=== PATIENT | female | born 1990 | race Native Hawaiian/Other Pacific Islander ===

== ENCOUNTER 2016-11-12 18:20 | Emergency (ER) | payer OTHER ==
[~2016-11-12] VITALS: Ht 154.9 cm; Wt 99.3 kg
[~2016-11-12 18:20] MED LIST: ACET-689 PO; CIPRO250 MG PO; DICY20TA34 PO; LORA10TA3 PO; LORTAB1 TAB PO; ONDA4TAB3 PO; PROM25TA52 PO; PROZAC10 MG PO; TOBRAMYCIN0.3 % OP; ZANTAC 75 PO
[2016-11-12 19:08] VITALS: BP 127/83; TEMP 98.5
== END 2016-11-12 19:12 | disposition home or self-care (01) ==
LOC: ED 18:20
DX: K64.4 Residual hemorrhoidal skin tags (principal); K64.8 Other hemorrhoids
CPT/HCPCS: 99282

== ENCOUNTER 2017-06-12 08:30 | Emergency (ER) | payer OTHER ==
[~2017-06-12] VITALS: Ht 154.9 cm; Wt 93.9 kg
[2017-06-12 08:35] VITALS: TEMP 98.1
[2017-06-12 10:17] LABS: PLATELET COUNT 277 K/uL (152-353)
[2017-06-12 10:19] LABS: POTASSIUM 3.9 mmol/L (3.6-5.2)
[2017-06-12 13:16] VITALS: BP 138/90
== END 2017-06-12 13:16 | disposition home or self-care (01) ==
LOC: ED 08:30
PROVIDERS: Family Medicine
DX: R07.89 Other chest pain (principal); R10.11 Right upper quadrant pain
CPT/HCPCS: 36415; 80048; 84484; 85027; 85379; 96374; 99284; J1885

== ENCOUNTER 2017-06-28 18:20 | Emergency (ER) | payer OTHER ==
[~2017-06-28] VITALS: Ht 154.9 cm; Wt 93.9 kg
[2017-06-28 18:52] VITALS: BP 111/87; TEMP 97.7
[2017-06-28] MEDS ORDERED: ALBU90AE13 INH (18:53)
== END 2017-06-28 19:20 | disposition home or self-care (01) ==
LOC: ED 18:20
DX: K64.4 Residual hemorrhoidal skin tags (principal)
CPT/HCPCS: 99281

== ENCOUNTER 2017-07-10 11:05 | Outpatient (CLI) | payer OTHER ==
[~2017-07-10 11:05] MED LIST changes: +ALBU90AE13 INH
== END 2017-07-10 19:48 | disposition home or self-care (01) ==
LOC: NM 11:05
DX: K81.9 Cholecystitis, unspecified (principal); R10.84 Generalized abdominal pain
CPT/HCPCS: A9537

== ENCOUNTER 2017-07-13 12:15 | Emergency (ER) | payer OTHER ==
[~2017-07-13] VITALS: Ht 154.9 cm; Wt 93.0 kg
[2017-07-13 13:42] LABS: PLATELET COUNT 324 K/uL (152-353)
[2017-07-13 13:48] LABS: POTASSIUM 3.4 mmol/L (3.6-5.2)
[2017-07-13 16:00] VITALS: BP 139/84; TEMP 98
== END 2017-07-13 17:44 | disposition home or self-care (01) ==
LOC: ED 12:15
DX: F31.89 Other bipolar disorder (principal); R11.2 Nausea with vomiting, unspecified
CPT/HCPCS: 36415; 80053; 80307; 80320; 80329; 81000; 84439; 84443; 85027; 87086; 87088; 99284

== ENCOUNTER 2018-02-01 13:37 | Emergency (ER) | payer OTHER ==
[~2018-02-01] VITALS: Ht 154.9 cm; Wt 93.0 kg
[2018-02-01 15:07] VITALS: BP 118/90; TEMP 97.7
== END 2018-02-01 15:12 | disposition home or self-care (01) ==
LOC: ED 13:37
DX: B34.9 Viral infection, unspecified (principal); W54.0XXA Bitten by dog, initial encounter
CPT/HCPCS: 99282

== ENCOUNTER 2018-05-24 09:54 | Outpatient (CLI) | payer OTHER | END 2018-05-24 19:48 | disposition home or self-care (01) | LOC: LABW 09:54 | DX: K52.9 Noninfective gastroenteritis and colitis, unspecified (principal) | CPT/HCPCS: 83630; 87015; 87045; 87324; 87328; 87329; 87449; 87899 ==

== ENCOUNTER 2018-07-10 10:33 | Emergency (ER) | payer OTHER ==
[~2018-07-10] VITALS: Ht 154.9 cm; Wt 105.2 kg
[2018-07-10 10:35] VITALS: TEMP 98
[2018-07-10 11:41] LABS: PLATELET COUNT 316 K/uL (152-353)
[2018-07-10 11:49] LABS: POTASSIUM 4.3 mmol/L (3.6-5.2)
[2018-07-10 15:42] VITALS: BP 118/74
== END 2018-07-10 15:42 | disposition home or self-care (01) ==
LOC: ED 10:33
PROVIDERS: Emergency Medicine
DX: R10.84 Generalized abdominal pain (principal); D72.828 Other elevated white blood cell count
CPT/HCPCS: 80053; 81000; 81025; 82150; 83690; 85027; 96374; 99284; J1885

== ENCOUNTER 2018-08-20 21:36 | Emergency (ER) | payer OTHER ==
[~2018-08-20] VITALS: Ht 154.9 cm; Wt 104.3 kg
[2018-08-20 23:51] VITALS: BP 116/78; TEMP 98
== END 2018-08-20 23:51 | disposition home or self-care (01) ==
LOC: ED 21:36
DX: J02.0 Streptococcal pharyngitis (principal)
CPT/HCPCS: 87502; 87651; 99283

== ENCOUNTER 2018-08-23 15:14 | Emergency (ER) | payer OTHER ==
[~2018-08-23] VITALS: Ht 154.9 cm; Wt 104.3 kg
[2018-08-23 17:40] VITALS: BP 115/80; TEMP 98.3
== END 2018-08-23 17:41 | disposition home or self-care (01) ==
LOC: ED 15:14
DX: J06.9 Acute upper respiratory infection, unspecified (principal); M94.0 Chondrocostal junction syndrome [Tietze]; F17.290 Nicotine dependence, other tobacco product, uncomplicated
CPT/HCPCS: 96372; 99283; J1885

== ENCOUNTER 2018-11-22 08:57 | Emergency (ER) | payer OTHER ==
[~2018-11-22] VITALS: Ht 154.9 cm; Wt 104.3 kg
[2018-11-22 09:06] VITALS: TEMP 99.5
[2018-11-22 09:59] VITALS: BP 118/78
== END 2018-11-22 10:05 | disposition home or self-care (01) ==
LOC: ED 08:57
DX: M79.641 Pain in right hand (principal); S60.221A Contusion of right hand, initial encounter; X58.XXXA Exposure to other specified factors, initial encounter
CPT/HCPCS: 99282; 99283

== ENCOUNTER 2019-01-22 16:46 | Emergency (ER) | payer OTHER ==
[~2019-01-22] VITALS: Ht 154.9 cm; Wt 104.3 kg
[2019-01-22 16:55] VITALS: BP 141/86; TEMP 98.6
== END 2019-01-22 17:35 | disposition home or self-care (01) ==
LOC: ED 16:46
DX: J03.80 Acute tonsillitis due to other specified organisms (principal); B97.89 Other viral agents as the cause of diseases classified elsewhere; J06.9 Acute upper respiratory infection, unspecified
CPT/HCPCS: 87077; 87081; 87185; 87502; 87651; 99283

== ENCOUNTER 2019-10-04 16:59 | Emergency (ER) | payer OTHER ==
[~2019-10-04] VITALS: Ht 154.9 cm; Wt 102.5 kg
[2019-10-04 18:37] VITALS: BP 118/76; TEMP 98.4
== END 2019-10-04 18:41 | disposition home or self-care (01) ==
LOC: ED 16:59
DX: T65.811A Toxic effect of latex, accidental (unintentional), initial encounter (principal); L29.8 Other pruritus; Y92.89 Other specified places as the place of occurrence of the external cause
CPT/HCPCS: 96372; 99282; 99283; J1200; J2930

== ENCOUNTER 2019-10-22 17:00 | Emergency (ER) | payer OTHER ==
[~2019-10-22] VITALS: Ht 154.9 cm; Wt 101.6 kg
[2019-10-22 22:09] VITALS: BP 114/72; TEMP 98.2
== END 2019-10-22 22:09 | disposition home or self-care (01) ==
LOC: ED 17:00
DX: T74.21XA Adult sexual abuse, confirmed, initial encounter (principal); H60.8X2 Other otitis externa, left ear
CPT/HCPCS: 80307; 81000; 99283

== ENCOUNTER 2020-01-23 14:52 | Emergency (ER) | payer OTHER ==
[~2020-01-23] VITALS: Ht 154.9 cm; Wt 100.2 kg
[2020-01-23 19:30] VITALS: BP 136/84; TEMP 97.5
== END 2020-01-23 19:30 | disposition home or self-care (01) ==
LOC: ED 14:52
DX: J32.8 Other chronic sinusitis (principal); L73.1 Pseudofolliculitis barbae; F17.210 Nicotine dependence, cigarettes, uncomplicated; Z03.818 Encounter for observation for suspected exposure to other biological agents ruled out
CPT/HCPCS: 82728; 85379; 87502; 87635; 87651; 99283; U0003

== ENCOUNTER 2020-09-21 16:13 | Outpatient (CLI) | payer OTHER | END 2020-09-21 22:43 | disposition home or self-care (01) | LOC: RAD 16:13 | PROVIDERS: ATTEND Nurse Practitioner Family | DX: U07.1 COVID-19 (principal) ==

== ENCOUNTER 2020-09-23 08:17 | Outpatient (CLI) | payer OTHER ==
[~2020-09-23] VITALS: Ht 154.9 cm; Wt 104.3 kg
== END 2020-09-23 12:20 | disposition home or self-care (01) ==
LOC: INF 08:17
PROVIDERS: ATTEND Family Medicine
DX: Z23 Encounter for immunization (principal); U07.1 COVID-19
CPT/HCPCS: 96365; M0244

== ENCOUNTER 2021-08-09 14:04 | Emergency (ER) | payer OTHER ==
[~2021-08-09] VITALS: Ht 154.9 cm; Wt 104.3 kg
[2021-08-09 14:10] VITALS: BP 108/49; TEMP 97.9
== END 2021-08-09 16:25 | disposition home or self-care (01) ==
LOC: ED 14:04
DX: S00.83XA Contusion of other part of head, initial encounter (principal); S20.223A Contusion of bilateral back wall of thorax, initial encounter; S30.0XXA Contusion of lower back and pelvis, initial encounter; V89.2XXA Person injured in unspecified motor-vehicle accident, traffic, initial encounter; Y92.89 Other specified places as the place of occurrence of the external cause
CPT/HCPCS: 96372; 99283; J1885; J2360

== ENCOUNTER 2021-10-06 07:45 | Emergency (ER) | payer OTHER ==
[~2021-10-06] VITALS: Ht 154.9 cm; Wt 104.3 kg
[2021-10-06 08:06] VITALS: BP 132/87; TEMP 98.2
== END 2021-10-06 10:16 | disposition home or self-care (01) ==
LOC: ED 07:45
DX: G43.909 Migraine, unspecified, not intractable, without status migrainosus (principal); E66.8 Other obesity; F41.8 Other specified anxiety disorders
CPT/HCPCS: 96372; 99283; J1885; J2765

== ENCOUNTER 2021-10-20 13:31 | Emergency (ER) | payer OTHER ==
[2021-10-20 17:25] LABS: POTASSIUM 3.5 mmol/L (3.6-5.2); SODIUM 136 mmol/L (136-145)
[2021-10-20 17:41] LABS: PLATELET COUNT 347 K/uL (152-353)
== END 2021-10-20 15:12 | disposition home or self-care (01) ==
LOC: ED 13:31
PROVIDERS: Family Medicine
DX: K21.00 Gastro-esophageal reflux disease with esophagitis, without bleeding (principal)
CPT/HCPCS: 36415; 80053; 82550; 84484; 85027; 93005; 99283

== ENCOUNTER 2022-04-07 00:25 | Emergency (ER) | payer OTHER ==
[~2022-04-07] VITALS: Ht 154.9 cm; Wt 113.4 kg
== END 2022-04-07 01:45 | disposition home or self-care (01) ==
LOC: ED 00:25
DX: F41.0 Panic disorder [episodic paroxysmal anxiety] (principal)
CPT/HCPCS: 80307; 93005; 99283

== ENCOUNTER 2022-05-22 01:06 | Emergency (ER) | payer OTHER ==
[~2022-05-22] VITALS: Ht 154.9 cm; Wt 99.8 kg
[2022-05-22 01:15] VITALS: BP 138/82; TEMP 97.8
== END 2022-05-22 02:10 | disposition home or self-care (01) ==
LOC: ED 01:06
DX: K02.9 Dental caries, unspecified (principal); K08.89 Other specified disorders of teeth and supporting structures
CPT/HCPCS: 96372; 99282; J1885

== ENCOUNTER 2022-06-14 18:46 | Emergency (ER) | payer OTHER ==
[~2022-06-14] VITALS: Ht 154.9 cm; Wt 103.0 kg
[2022-06-14 18:55] VITALS: TEMP 98.7
[2022-06-14 20:45] VITALS: BP 115/77
== END 2022-06-14 20:45 | disposition home or self-care (01) ==
LOC: ED 18:46
DX: S39.012A Strain of muscle, fascia and tendon of lower back, initial encounter (principal); F31.89 Other bipolar disorder; E66.01 Morbid (severe) obesity due to excess calories
CPT/HCPCS: 81002; 96372; 99283; J1885; J2360

== ENCOUNTER 2022-06-18 19:03 | Emergency (ER) | payer OTHER ==
[~2022-06-18] VITALS: Ht 154.9 cm; Wt 99.8 kg
[2022-06-18 19:14] VITALS: TEMP 98.4
[2022-06-18 20:10] LABS: PLATELET COUNT 313 K/uL (152-353)
[2022-06-18 20:18] LABS: POTASSIUM 3.9 mmol/L (3.6-5.2)
[2022-06-18 22:00] VITALS: BP 123/55
== END 2022-06-18 22:00 | disposition short-term general hospital (02) ==
LOC: ED 19:03
PROVIDERS: Family Medicine
DX: K92.2 Gastrointestinal hemorrhage, unspecified (principal); K64.9 Unspecified hemorrhoids; R19.00 Intra-abdominal and pelvic swelling, mass and lump, unspecified site; F17.210 Nicotine dependence, cigarettes, uncomplicated
CPT/HCPCS: 36415; 80053; 80307; 81002; 82150; 82272; 83690; 84484; 85027; 93005; 96360; 99284; J2405; Q9963